=== PATIENT | male | born 1930 | race Caucasian/White ===

== ENCOUNTER 2018-01-21 10:58 | Emergency (ER) | payer OTHER, MEDICAID ==
[~2018-01-21] VITALS: Ht 172.7 cm; Wt 83.9 kg
[~2018-01-21 10:58] MED LIST: ALLO300T2 PO; EZET10TA PO; HYDR25TA4 PO; OMEP20CA10 PO; SIMV40TA2 PO; TAMS-11 PO
[2018-01-21 11:05] VITALS: BP_SYST 142
[2018-01-21 11:38] VITALS: BP_SYST 142
== END 2018-01-21 11:37 | disposition home or self-care (01) ==
LOC: SED 10:58
DX: S05.02XA Injury of conjunctiva and corneal abrasion without foreign body, left eye, initial encounter (principal); E78.00 Pure hypercholesterolemia, unspecified; M10.9 Gout, unspecified; K21.9 Gastro-esophageal reflux disease without esophagitis; I10 Essential (primary) hypertension; Z79.899 Other long term (current) drug therapy; X58.XXXA Exposure to other specified factors, initial encounter; Y93.89 Activity, other specified; Y92.89 Other specified places as the place of occurrence of the external cause; Y99.8 Other external cause status
CPT/HCPCS: 99283